=== PATIENT | female | born 1965 | race Hispanic/Latino ===

== ENCOUNTER 2018-11-13 10:37 | Day surgery (SDC) | payer SELFPAY ==
[~2018-11-13 10:37] MED LIST: ASPIRIN 8181 MG PO; CRESTOR10 MG PO; GLIPIZIDE ER5 M1 PO; GLUCOPHAGE500 MG PO; MOBIC7.5 M1 PO; ROBAXIN-750750 MG PO
[2018-11-13] MEDS ORDERED: PERCOCET 5/325M1 TAB PO (13:35)
[2018-11-13 14:13] VITALS: BP 118/70
== END 2018-11-13 14:27 | disposition home or self-care (01) | DRG 583 ==
LOC: ORM 10:37
PROVIDERS: ATTEND Surgery
PROC: 0HBT0ZZ Excision of Right Breast, Open Approach (ICD-10-PCS; principal; 2018-11-13)
DX: C50.811 Malignant neoplasm of overlapping sites of right female breast (principal); E11.9 Type 2 diabetes mellitus without complications; Z79.84 Long term (current) use of oral hypoglycemic drugs
CPT/HCPCS: J0131

== ENCOUNTER 2018-12-04 09:53 | Day surgery (SDC) | payer SELFPAY ==
[~2018-12-04] VITALS: Ht 152.4 cm; Wt 81.6 kg
[~2018-12-04 09:53] MED LIST changes: +PERCOCET 5/325M1 TAB PO
[2018-12-04] MEDS ORDERED: PERCOCET 5/325M1 TAB PO (13:07)
[2018-12-04 13:58] VITALS: BP 139/79
== END 2018-12-04 14:22 | disposition home or self-care (01) | DRG 583 ==
LOC: ORM 09:53
PROVIDERS: ATTEND Surgery
PROC: 0HBT0ZZ Excision of Right Breast, Open Approach (ICD-10-PCS; principal; 2018-12-04)
DX: C50.911 Malignant neoplasm of unspecified site of right female breast (principal); E11.9 Type 2 diabetes mellitus without complications; Z90.11 Acquired absence of right breast and nipple
CPT/HCPCS: J0131; J1100